=== PATIENT | male | born 1995 | race African-American/Black ===

== ENCOUNTER 2018-09-27 21:53 | Emergency (ER) | payer OTHER ==
[2018-09-27] MEDS ORDERED: Fluorescein Opthalmic Strip ONE (22:56)
[2018-09-27] MEDS ORDERED: Proparacaine 0.5% Opth 15 ML BOT ONE (22:56)
== END 2018-09-27 23:10 | disposition home or self-care (01) ==
LOC: ERS 21:53
DX: H10.211 Acute toxic conjunctivitis, right eye (principal); F17.210 Nicotine dependence, cigarettes, uncomplicated
CPT/HCPCS: 99283